=== PATIENT | male | born 1960 | race Caucasian/White ===

== ENCOUNTER → 2016-07-13 | Outpatient (CLI) | payer OTHER ==
[~2016-07-13] MED LIST: NO HOME MEDICATIONS
== END ==
LOC: COL.RAD 07:17
DX: M25.561 Pain in right knee (principal); M25.461 Effusion, right knee; M94.261 Chondromalacia, right knee; M95.8 Other specified acquired deformities of musculoskeletal system

== ENCOUNTER → 2019-10-15 | Outpatient (CLI) | payer BC | LOC: ZCOL.LAB 16:38 | DX: U07.1 COVID-19 (principal) ==